=== PATIENT | female | born 1960 | race Caucasian/White ===

== ENCOUNTER 2020-02-05 08:54 | Outpatient (REF) | payer BC, SELFPAY | END 2020-02-05 08:55 | disposition home or self-care (01) | LOC: HO.BBR 08:54 | PROVIDERS: Visit Provider Internal Medicine | DX: E83.110 Hereditary hemochromatosis (principal) | CPT/HCPCS: 99195 ==

== ENCOUNTER 2020-05-10 14:26 | Outpatient (REF) | payer BC, SELFPAY ==
--- NOTE | 2020-05-10 14:36 | MM_ITS ---
EXAMINATION: MM SCREENING DIGITAL BREAST TOMOSYNTHESIS, BILATERAL CLINICAL INFORMATION: Screening. Asymptomatic. The lifetime risk of breast cancer based on the Tyrer-Cuzick Model is 17%. COMPARISON: Mammography: 02/26/2019, 02/23/2018, 02/21/2017 TECHNIQUE: Digital breast tomosynthesis is performed in both the craniocaudal and mediolateral oblique views along with computer-aided detection (CAD). Synthesized 2D images are generated from the tomosynthesis. FINDINGS: There are scattered areas of fibroglandular density (ACR BI-RADS breast composition Category b). There are no significant masses, abnormal calcifications, or other abnormalities. The axilla and skin contours are unremarkable. No significant changes. MM/MM tomosynthesis screening BI IMPRESSION: No mammographic evidence of malignancy. ASSESSMENT: BI-RADS 1: Negative RECOMMENDATION: Routine annual mammography screening. This patient's information was entered into a reminder system with a target due date for their next mammogram.
== END 2020-05-10 14:27 | disposition home or self-care (01) ==
LOC: HO.MAMMO 14:26
PROVIDERS: PCP Internal Medicine; Visit Provider Internal Medicine
DX: Z12.31 Encounter for screening mammogram for malignant neoplasm of breast (principal)
CPT/HCPCS: 77063; 77067

== ENCOUNTER → 2020-08-11 12:25 | Outpatient (BNVA) | payer BC, SELFPAY | PROVIDERS: PCP Internal Medicine; Visit Provider Physician Assistant ==

== ENCOUNTER 2020-09-15 13:22 | Outpatient (REF) | payer BC, SELFPAY ==
--- NOTE | ~2020-09-15 | MR_ITS ---
EXAMINATION: MR KNEE WITHOUT CONTRAST, RIGHT CLINICAL INFORMATION: Right knee pain and swelling. Fall injury. COMPARISON: No priors. TECHNIQUE: MRI of the knee without contrast was performed using routine sequences on a high-field scanner. FINDINGS: MENISCI: Medial Meniscus: Radial tear involves the central third of the posterior horn (5:5), (4:10). Tearing involves the anterior, middle, and posterior thirds of the meniscus respectively. No meniscal extrusion. Lateral Meniscus: Intact LIGAMENTS: Cruciate: Intact Collateral: Intact EXTENSOR MECHANISM: Intact ARTICULAR CARTILAGE/BONE: Patellofemoral Compartment: There is high-grade thinning of the lateral patellar facet articular cartilage superiorly. Tiny marginal osteophytes. Medial Compartment: Tiny marginal osteophytes. Thinning of the weightbearing femoral condyle articular cartilage with full thickness fissures in the central and posterior aspects of the weightbearing femoral condyle articular cartilage respectively. Underlying subchondral bone is preserved. Lateral Compartment: Focal cartilage is preserved. JOINT FLUID AND BURSAE: Moderate joint effusion. Ruptured Ta's cyst is noted with fluid tracking along the superficial aspect of the medial and lateral gastrocnemius musculature. MR/MR knee RT wo con IMPRESSION: Right knee: 1. Radial tear involving the central third of the posterior horn of the medial meniscus. Slight 2. Intact cruciate and collateral ligaments. 3. Mild lateral patellofemoral compartment chondrosis. Moderate medial tibiofemoral compartment process involving the weightbearing femoral condyle articular cartilage. 4. Moderate joint effusion. 5. Ruptured Ta's cyst with small volume of fluid in the semimembranosus-medial gastrocnemius bursa and fluid tracking along gastrocnemius musculature.
== END 2020-09-15 13:23 | disposition home or self-care (01) ==
LOC: HO.MRI 13:22
PROVIDERS: Visit Provider Physician Assistant
DX: S83.8X1A Sprain of other specified parts of right knee, initial encounter (principal); X58.XXXA Exposure to other specified factors, initial encounter; Y93.9 Activity, unspecified; Y92.9 Unspecified place or not applicable; Y99.9 Unspecified external cause status
CPT/HCPCS: 73721

== ENCOUNTER 2020-09-22 09:00 | Outpatient (RCR) | payer BC, SELFPAY ==
--- NOTE | 2020-09-22 10:43 | MHC.PT.OD ---
[facility] [place] Office [place] Office [place] Office [address] Katja Maier [address] [phone] F: [phone] F: [phone] F: [phone] F: [phone] Physical Therapy Daily Note Diagnosis: S83.8X1A Sprain of other specified parts of R knee, initial encounter, pain in R knee M25.561, Pain in R knee signed by Ginny Otoole PA-C date of referral Date of Surgery: Date of Evaluation: 08/29/20 Date of Treatment: 09/22/20 Treatments to Date: 8 Cancellations to Date: 0 No Shows to Date: 0 Authorized Visits: Insurance End Date: Precautions/ Contraindications:hx osteopenia hx skin sensitivity -held taping. Subjective: Tried paddleboating for 15 minutes since last session, had flare of pain, has concerns about knee brace being too snug. Pain Score and Location: 6 Global R knee Objective Flowsheet: Tests & Measures 09/22/20: -3 to 105 limited by pain/edema posterior knee Supra: 46 supra cm R knee, 44 cm jt line, infra 36 cm (up supra/jt line since eval) 09/15/20: -3 to 130 tender proximal HS and distal ITB, inflamed lateral R knee xray: NO acute fracture of dislocation of R knee. Minimal osteophyte formation. Small effusion. Flabella in the posterior lateral soft tissue. Completed 08/08/[address] Richard Pollack [address] by Dr. Bhatt. [ End ] Awaiting MRI results- to see Ortho office today re: findings Exercises seated bike x 2.0 x 10 seat #8 Review of supine/seated heel slides x 10 sec hold x 5R; Knee extension stretch with heel prop with ankle pump combo x 2 sets 10R, isometric quad set x 5 sec hold, SLR into flexion Isometric hip adduction in hooklying with ball squeeze with combo posterior pelvic tilt and hip ext x 2 sets 10R Education/benefit in supportive footwear, education re: (+) navicular drop test (+) bunion L foot, impact support of footwear, in gait/sx MET assessment/correction for R anterior innominate rotation. Education re: implementing posterior pelvic tilts, hip adduction, hip abd for home gradually (issued GTB) Sequencing stairs 4 inch leading with L LE first, descending stairs R LE first to review sx Encouraged icing, stretching Reissued HEP recommendation: Seated HS stretch, seated gastroc stretch, knee extension stretch heel prop. Modalities Select TENS machine Positioned in supine w/ knee ext stretch with bolster under ankle, pt received Knee setting Ch1 and CH2 cross patternned around tibiofemoral joint with cervical ice pack wrapped inside of a pillowcase at intensity 3.5-5.0 mA with cervical ice pack for 10 minutes. Knee ext pre application -3 pre, near full post Assessment: Pt has attended 8 session of PT to date, demonstrating limited gains in ROM secondary to pain/edema, today -3 to 105, with sx at end range flexion. She reports greatest sx lateral/posterior aspect of R knee. She has reported use of knee brace when on boat; she has denied evidence of buckling in recent days. We reviewed fit of brace which appears supportive however pt has verbalized discomfort due to edema. Has reported use of meloxicam with ? limited gains (started last week). She has demonstrated ongoing soreness, edema, and limited ROM. Pt to see [facility] today at 1:30 for follow-up. Pt is R hand dominant, 60 y/o female, referred to PT from [facility] following history of slipping on ice which occurred a few months ago with report of valgus load, then had secondary trauma a few days ago when stepping off boat ramp. Pt verbalizes sx lateral aspect/posterior region of R knee, impaired ROM, tight hamstrings, and antalgic gait. Pt reports decreased tolerance for standing, walking, kneeling, and squatting. Pt would benefit from attending skilled PT services at a frequency of 2x/week x 4 weeks to address impairments, implement HEP, and restore functional mobility tolerance to resume PLOF. PT Plan: Follow up on Tuesday re: MRI with orthopedics. work on ext>flex ROM, pain/edema management Short Term Goals: 1. Initiate R knee AROM to -5 (IR: -10 degrees) -met. 2. Initiate R knee AAROM to 120 (IR: 115 degrees). met inconsistently. 3. Pt will demonstrate SLR into flexion with good eccentric control. met inconsistently 4. Pt will demonstrate symmetrical weight bearing with full extension of R knee in stance phase of gait. Long-Term Goals: 1. Initiate R knee AROM 0 to 135 degrees (IR: -10 to 115 degrees). 2. I HEP. 3. R HS length 170 degrees. 4. Resume walking 2-3 miles with quality symmetry/weightbearing in knee. 5. Strength R knee 5/5 flex, 5/5 ext. Electronically signed by: Susie Gonzalez, PT, DPT
== END 2020-10-10 12:47 | disposition other institution (70) ==
LOC: HO.PTWFD 09:00
PROVIDERS: PCP Internal Medicine; Visit Provider Physician Assistant
DX: S83.8X1A Sprain of other specified parts of right knee, initial encounter (principal); M25.561 Pain in right knee
CPT/HCPCS: 97014; 97035; 97110; 97140; 97161; 97530; 97535

== ENCOUNTER 2020-09-22 13:03 | Outpatient (REF) | payer BC, SELFPAY ==
--- NOTE | ~2020-09-22 | XR_ITS ---
EXAMINATION: XR KNEE AP STANDING CLINICAL INFORMATION: Sprain COMPARISON: MRI of the right knee sep 15 2020 TECHNIQUE: AP bilateral standing view of the knees was obtained. FINDINGS: Bone alignment is normal. No fracture or dislocation is seen. Joint spaces are normal. Soft tissues are normal. XR/XR knee standing BI IMPRESSION: Normal knees.
== END 2020-09-22 13:04 | disposition home or self-care (01) ==
LOC: HO.HOSX 13:03
PROVIDERS: Visit Provider Physician Assistant
DX: M17.11 Unilateral primary osteoarthritis, right knee (principal); S83.8X1A Sprain of other specified parts of right knee, initial encounter; X58.XXXA Exposure to other specified factors, initial encounter; Y93.9 Activity, unspecified; Y92.9 Unspecified place or not applicable; Y99.8 Other external cause status; Z88.6 Allergy status to analgesic agent; Z88.5 Allergy status to narcotic agent
CPT/HCPCS: 20610; 73565; J1040

== ENCOUNTER 2021-11-09 14:01 | Outpatient (REF) | payer BC, SELFPAY | END 2021-11-09 14:02 | disposition home or self-care (01) | LOC: HO.BBR 14:01 | PROVIDERS: Visit Provider Internal Medicine | DX: Z13.89 Encounter for screening for other disorder (principal) ==

== ENCOUNTER 2022-03-17 08:06 | Outpatient (REF) | payer BC, SELFPAY | END 2022-03-17 08:07 | disposition home or self-care (01) | LOC: HO.BBR 08:06 | PROVIDERS: Visit Provider Internal Medicine | DX: Z13.89 Encounter for screening for other disorder (principal) ==

== ENCOUNTER 2022-11-12 12:02 | Outpatient (REF) | payer OTHER, SELFPAY | END 2022-11-12 12:03 | disposition home or self-care (01) | LOC: HO.BBR 12:02 | PROVIDERS: PCP Internal Medicine; Visit Provider Internal Medicine | DX: Z13.89 Encounter for screening for other disorder (principal) ==

== ENCOUNTER 2023-02-16 11:10 | Outpatient (REF) | payer OTHER, SELFPAY | END 2023-02-16 11:11 | disposition home or self-care (01) | LOC: HO.BBR 11:10 | PROVIDERS: PCP Internal Medicine; Visit Provider Internal Medicine | DX: Z13.89 Encounter for screening for other disorder (principal) ==

== ENCOUNTER 2023-05-17 10:58 | Outpatient (REF) | payer OTHER, SELFPAY | END 2023-05-17 10:59 | disposition home or self-care (01) | LOC: HO.BBR 10:58 | PROVIDERS: PCP Internal Medicine; Visit Provider Internal Medicine | DX: Z13.89 Encounter for screening for other disorder (principal) ==

== ENCOUNTER 2023-07-13 09:59 | Outpatient (REF) | payer OTHER, SELFPAY | END 2023-07-13 10:00 | disposition home or self-care (01) | LOC: HO.BBR 09:59 | PROVIDERS: PCP Internal Medicine; Visit Provider Internal Medicine | DX: Z13.89 Encounter for screening for other disorder (principal) ==

== ENCOUNTER 2023-08-17 09:50 | Outpatient (REF) | payer MEDICARE, SELFPAY | END 2023-08-17 09:51 | disposition home or self-care (01) | LOC: HO.BBR 09:50 | PROVIDERS: PCP Internal Medicine; Visit Provider Internal Medicine | DX: Z13.89 Encounter for screening for other disorder (principal) ==

== ENCOUNTER 2023-09-14 09:03 | Outpatient (REF) | payer MEDICARE, SELFPAY | END 2023-09-14 09:04 | disposition home or self-care (01) | LOC: HO.BBR 09:03 | PROVIDERS: PCP Internal Medicine; Visit Provider Internal Medicine | DX: Z13.89 Encounter for screening for other disorder (principal) ==

== ENCOUNTER 2024-08-14 13:00 | Outpatient (REF) | payer MEDICARE, SELFPAY ==
--- OUTSIDE RECORDS SUMMARY | 2024-08-14 15:51 | XMS_ITS | Clinical Summary ---
Author Organization [facility] Address [address] [place] [address] Care Team Providers Care Tea Blender Name Role Phone Jackie Woody MD Primary Care Provider [phone] Allergies Active Allergy Reactions Criticality Noted Date Comments Oxycodone-Acetaminophen 12/24/2019 Medications No known medications Active Problems Problem Noted Date Diagnosed Date Hereditary hemochromatosis 12/05/2017 Social History Tobacco Use Types Packs/Day Years Used Date Smoking Tobacco: Never Assessed Sex and Gender Information Value Date Recorded Sex Assigned at Not on file Gender Identity Not on file Sexual Orientation Not on file Job Start Date Occupation Industry Not on file Not on file Not on file Last Filed Vital Signs Vital Sign Reading Time Taken Comments Blood Pressure 145/63 08/11/2023 10:34 AM EDT Pulse 54 08/11/2023 10:34 AM EDT Temperature 36.4 ??C (97.5 ??F) 08/11/2023 10:34 AM E DT Respiratory Rate - - Oxygen Saturation 99% 08/11/2023 10:34 AM EDT Inhaled Oxygen Concentration - - Weight 95.1 kg (209 lb 9.6 oz) 08/11/2023 10:34 AM EDT Height 170.2 cm (5' 7 ) 12/24/2019 9:56 AM EDT Body Mass Index 32.83 12/24/2019 9:56 AM EDT Plan of Treatment Health Maintenance Due Date Last Done Comments Hepatitis C Screening 1960 Depression Screening 1970 Preventative Health Evaluation 1976 Colon Cancer Screening (Colonoscopy) 08/07/2003 Breast Cancer Screening (Mammogram) 2008 Fall Risk Assessment 08/07/2023 Osteoporosis Screening (DEXA Scan) 08/07/2023 Pneumococcal Vaccine (1 of 1 - PCV) 08/07/2023 COVID-19 Vaccine ( season) 2024 08/20/2021, 02/18/2021, 07/06/2020, Additional history exists Influenza Vaccine (#1) 2024 , 01/11/2020, 01/11/2020, Additional history exists DTap / Tdap / Td (3 - Td or Tdap) 09/10/2027 09/09/2017, 12/13/2009 RSV Adult > 60+ Yrs or (1 - 1-dose 75+ series) 2033 Shingrix-Zoster Vaccine Completed 06/03/2018, 03/30 Hepatitis B Vaccines Aged Out No long er eligible based on patient's age to complete this topic RSV Ped < 20 months Aged Out No longe r eligible based on patient's age to complete this topic Care Teams Tea Blender Relationship Specialty Start Date End Date Jackie Woody MD [address] [place] [id number] PCP - General Internal Medicine 12/24/19
--- OUTSIDE RECORDS SUMMARY | 2024-08-14 15:52 | XMS_ITS | Continuity of Care Document ---
Author Organization [facility] Address [address] [facility] [place] [address] Insurance Providers Payer Plan Claims Address Claims Phone Policy Number Group Number Relation Employer Guarantor Name Guarantor Guarantor Address Guarantor Phone Health [place] [employer] [facility] [employer] [place] [employer] [address] [id number] Self Eliz Curry [address] [place] [id number] [facility] PUBLIC [facility] PUBLI C PLANS [address], [place] [address] tel:[phone] [id number] 2 Self Eliz Curry [address] [place] [id number] [facility] PUBLI C PLANS [address], [place] [address] [id number] 2 Self Eliz Curry [address] [place] [address] Problems Unknown Problems Results Test Value / Unit Interpretation Reference Ran Comp. Metabolic Panel (14)[[id number]]?Collected: 05/11/2024 04:59 PM?Specimen Received: 05/11/2024 05:00 AM?Source: [facility] Glucose [790894] 100 mg/dL H 70-99 mg/dL BUN [872640] 23 mg/dL 8-27 mg/dL Creatinine [292570] 0.93 mg/dL 0.57-1.0 0 mg/dL eGFR [020787] 68 mL/min/1.73 >59 mL/min/1 .73 BUN/Creatinine Ratio [749335] 25 12-28 Sodium [284176] 145 mmol/L H 134-144 mmol /L Potassium [913554] 4.4 mmol/L 3.5-5.2 m mol/L Chloride [759341] 106 mmol/L 96-106 mmo l/L Carbon Dioxide, Total [368797] 23 mmol/L 20-29 mmol/L Calcium [242390] 9.3 mg/dL 8.7-10.3 mg /dL Protein, Total [135886] 6.0 g/dL 6.0- 8.5 g/dL Albumin [771322] 4.2 g/dL 3.9-4.9 g/d L Globulin, Total [983110] 1.8 g/dL 1.5 -4.5 g/dL Bilirubin, Total [479434] 0.5 mg/dL 0. 0-1.2 mg/dL Alkaline Phosphatase [134048] 58 IU/L 44-121 IU/L AST (SGOT) [283053] 24 IU/L 0-40 IU/ L ALT (SGPT) [423439] 14 IU/L 0-32 IU/ L Lipid Panel[[id number]]?Collected: 05/11/2024 04:59 PM?Specimen Received: 05/11/2024 05:00 AM?Source: [facility] Cholesterol, Total [350315] 206 mg/dL H 100-199 mg/dL Triglycerides [330229] 113 mg/dL 0-149 mg/dL HDL Cholesterol [019649] 45 mg/dL >39 mg/dL VLDL Cholesterol Guillermo [622354] 20 mg/dL 5-40 mg/dL LDL Chol Calc (NIH) [391804] 141 mg/dL H 0-99 mg/dL Hemoglobin A1c[286637]?Collected: 05/11/2024 04:59 PM?Specimen Received: 05/11/2024 05:00 AM?Source: [facility] Hemoglobin A1c [907521] 5.4 % 4.8- 5.6 % . Prediabetes: 5.7 - 6.4 Nahomy betes: >6.4 Glycemic control for adults with diabetes: 7.0 Allergies, adverse reactions, alerts No known allergies and adverse reactions Medications No administered medications reported Vital Signs No vital signs reported Social History No smoking Hx information available
--- OUTSIDE RECORDS SUMMARY | 2024-08-14 15:52 | XMS_ITS | Clinical Summary ---
Author Organization [facility] Address [address] [place] [address] Phone Care Team Providers Care Maintenance Worker House Trailer Name Role Phone Jackie Woody MD Primary Care Provider [phone] Allergies Active Allergy Reactions Criticality Noted Date Comments Oxycodone-Acetaminophen Nausea And Vomiting 09/2017 Percocet Medications calcium carbonate-vit D3-min 600 mg-10 mcg (400 unit) tablet Take 1 Tab by mouth daily. Active Active Problems Problem Noted Date Diagnosed Date Allergic rhinitis 12/15/2017 Diverticulosis 12/15/2017 Hypercholesterolemia 12/15/2017 Internal hemorrhoids 12/15/2017 Hereditary hemochromatosis (CMS/HCC V24) 018 Encounters Date Type Department Care Team Description 08/10/2024 10:15 AM EDT Office Visit [facility] Hematology Oncology [address] [place] [phone] Celio Lewis MD Hereditary hemochromatosis (CMS/HCC V24) (Primary Dx) 07/24/[address] [facility] Hematology Oncology [address] [place] [phone] Celio Lewis MD 05/23/2024 9:25 AM EST - 05/23/2024 11:59 PM EST [facility] [address] [phone] Encounter for screening mammogram for breast cancer Discharge Disposition: Home or Self Care from Last 3 Months Immunizations Name Administration Dates Next Due Pfizer SARS-CoV-2 COVID-19, mRNA, LNP-S, preservative free 07/06/2020,06/15/2020 Tdap Tetanus diptheria acell ular pertussis (Boostrix; Adacel) 7yo and older 09/09/2017,12/13/2009 Social History Tobacco Use Types Packs/Day Years Used Date Smoking Tobacco: Former Cigarettes Tobacco Cessation:Counseling Given: Not Answered Alcohol Use Standard Drinks/Week Comments Yes 0 (1 standard drink = 0.6 oz pur e alcohol) Comments No Sex and Gender Information Value Date Recorded Sex Assigned at Not on file Legal Sex Female 5:48 AM EST Gender Identity Not on file Sexual Orientation Not on file Travel History Travel Start Travel End [place] 07/31/2024 08/07/2024 Obstetrics History Para Term AB IAB SAB Ectopic Multiple Livin g Live Births 2 Last Filed Vital Signs Vital Sign Reading Time Taken Comments Blood Pressure 133/69 08/10/2024 10:27 AM EDT Pulse 51 08/10/2024 10:27 AM EDT Temperature 36.9 ??C (98.5 ??F) 08/10/2024 1 0:27 AM EDT Respiratory Rate - - Oxygen Saturation 100% 08/10/2024 10: 27 AM EDT Inhaled Oxygen Concentration - - Weight 88.4 kg (194 lb 12.8 oz) 025 10:27 AM EDT Height 170.2 cm (5' 7 ) 08/10/2024 10:2 7 AM EDT Body Mass Index 30.51 08/10/2024 10:27 AM EDT Plan of Treatment Upcoming Encounters Date Type Department Care Team (Late st Contact Info) Description 08/12/2025 9:15 AM EDT Office Visit [facility] Hematology Oncology [address] [place] [phone] Celio Alas MD [address] [place] [phone] Health Maintenance Due Date Last Done Comments Cholesterol Screening (Lipid Panel) 04/04/2022 Colorectal Cancer Screening: Colonoscopy 04/04/2022 Depression Screening 04/04/2022 Hepatitis C Screening 04/04/2022 Medicare Annual Wellness Visit 04/04/2022 Osteoporosis Screening (Bone Density Screening) 04/04/2022 Social Influencers of Health Screening 04/04/2022 Falls Risk Assessment 08/07/2023 Breast Cancer Screening 05/23/2026 05/23/19 25, 05/20/2023, 05/17/2022, Additional history exists DTaP,Tdap,and Td Vaccines (3 - Td or Tdap) 09/10/2027 09/09/2017, 12/13/2009 RSV Immunization Adult Patients (1 - 1-dose 75+ series) 2033 Zoster Vaccines Completed 06/03/2018, 03/30/2018 Pneumococcal Vaccine: 50+ Years Completed 10/05/2023 COVID-19 Vaccine Completed 02/08/2024, 03/2023, 01/22/2022, Additional history exists Influenza Vaccine Completed 02/08/2024, , 01/22/2022, Additional history exists Hepatitis B Vaccines Completed 04/13/2024, 11/09/2023, 10/05/2023 HIB Vaccines Aged Out No longer eligi ble based on patient's age to complete this topic HPV Vaccines Aged Out No longer eligi ble based on patient's age to complete this topic Hepatitis A Vaccines Aged Out No long er eligible based on patient's age to complete this topic IPV Vaccines Aged Out No longer eligi ble based on patient's age to complete this topic MMR Vaccines Aged Out No longer eligi ble based on patient's age to complete this topic Meningococcal ACWY Vaccine Aged Out N o longer eligible based on patient's age to complete this topic Meningococcal B Vaccine Aged Out No l onger eligible based on patient's age to complete this topic RSV Immunization Patients Under 20 months Aged Out No longer eligible based on patient's age to complete this topic Varicella Vaccines Aged Out No longer eligible based on patient's age to complete this topic Procedures Procedure Name Priority Date/Time Associated Diagnosis Comments MG MAMMO DIGITAL SCREENING W ERICA BILAT Routine 05/23/2024 9:53 AM EST Encounter for screening mammogram for breast cancer from Last 3 Months Results * MG Mammo Digital Screening w Erica bilat (05/23/2024 9:53 AM EST) Anatomical Region Laterality Modality Breast Bilateral Mammography 05/23/2024 10:1 8 AM EST Impressions 05/23/2024 10:24 AM EST No mammographic evidence of malignancy. A negative mammogram in the presence of a clinically suspicious palpable abnormality does not preclude the possibility of malignancy or alter the indications for biopsy. PQRI CPT II 3342F Code 39284, 67708 PQRI 225 CPT II 7025F TISSUE DENSITY: There are scattered areas of fibroglandular density. (BI-RADS category B) IMPRESSION: Benign. BI-RADS CATEGORY: 2 - BENIGN RECOMMENDATION: Screening bilateral mammogram is recommended in 1 year. Mammo Location: [facility], [address] [place] [address] -------- FINAL REPORT -------- Dictated By: Ramses Guevara Dictated Date: 05/23/2024 10:18 ET Assigned Physician: Ramses Guevara Reviewed and Electronically Signed By: Ramses Guevara Signed Date: 05/23/2024 10:24 ET Workstation ID: [id number] Transcribed By: Self Edit Transcribed Date: 05/23/2024 10:18 ET Narrative 05/23/2024 10:24 AM EST CLINICAL: The patient is a 63 years Female presenting for routine screening mammography. COMPARISON: Most recently 05/20/2023 and most remotely 02/21/2017. ?? TECHNIQUE: Full-field digital mammography of the breasts bilaterally consisting of tomosynthesis in MLO and CC projection is performed in the [employer] 2000-D unit. ??Computer aided detection utilizing the iCAD system was utilized. FINDINGS: The breasts are again seen to be composed of a combination of fatty and fibroglandular elements. ??A well-circumscribed nodular density posterolaterally in the left breast is stable and is therefore again regarded as being benign. ??Scattered benign calcifications are again seen in both breasts. ??There is no suspicious cluster of microcalcifications, suspicious mass, or area of architectural distortion. There is no skin thickening or nipple retraction. Procedure Note Ramses Guevara MD - 05/23/2024 CLINICAL: The patient is a 63 years Female presenting for routinescreening mammography. COMPARISON: Most recently 05/20/2023 and most remotely 02/21/2017. TECHNIQUE: Full-field digital mammography of the breasts bilaterallyconsisting of tomosynthesis in MLO and CC projection is performed in the[employer] 2000-D unit. Computer aided detection utilizing the [employer]system was utilized. FINDINGS: The breasts are again seen to be composed of a combination offatty and fibroglandular elements. A well-circumscribed nodular densityposterolaterally in the left breast is stable and is therefore againregarded as being benign. Scattered benign calcifications are again seenin both breasts. There is no suspicious cluster of microcalcifications,suspicious mass, or area of architectural distortion. There is no skinthickening or nipple retraction. IMPRESSION: No mammographic evidence of malignancy. A negative mammogram in the presence of a clinically suspicious palpableabnormality does not preclude the possibility of malignancy or alter theindications for biopsy. PQRI CPT II 3342F Code 80653, 18739 PQRI 225 CPT II 7025F TISSUE DENSITY: There are scattered areas of fibroglandular density.(BI-RADS category B) IMPRESSION: Benign. BI-RADS CATEGORY: 2 - BENIGN RECOMMENDATION: Screening bilateral mammogram is recommended in 1 year. Mammo Location: [facility], [address] [place] [phone] -------- FINAL REPORT -------- Dictated By: Ramses Guevara Dictated Date: 05/23/2024 10:18 ET Assigned Physician: Ramses Guevara Reviewed and Electronically Signed By: Ramses Guevara Signed Date: 05/23/2024 10:24 ET Workstation ID: [id number] Transcribed By: Self Edit Transcribed Date: 05/23/2024 10:18 ET us Self Referral Sppl IMG BI PROCEDURES Final Resul t from Last 3 Months Insurance [employer] Care Teams Maintenance Worker House Trailer Relationship Specialty Start Date End Date Jackie Woody MD [address] [place] [phone] PCP - General Internal Medicine 11/09/17
--- OUTSIDE RECORDS SUMMARY | 2024-08-14 15:52 | XMS_ITS | Encounter Summary ---
Author Organization [facility] Address [address] [place] [address] Care Team Providers Care Aviation Electronic Warfare Operator Name Role Phone Jackie Woody MD Primary Care Provider [phone] Reason for Visit * Reason Comments Follow-up Encounter Details Date Type Department Care Team (Latest Contact Info) Description 08/10/2024 10:15 AM EDT Office Visit [facility] Hematology Oncology [address] [place] [phone] Celio Alas MD [address] [place] [phone] Hereditary hemochromatosis (CMS/HCC V24) (Primary Dx) Social History Tobacco Use Types Packs/Day Years [...] file Travel History Travel Start Travel End [place] 07/31/2024 08/07/2024 documented as of this encounter Last Filed Vital Signs Vital Sign Reading [...] Mass Index 30.51 08/10/2024 10:27 AM EDT documented in this encounter Progress Notes * Celio Soliz-MD Raj - 08/10/2024 10:15 AM EDT CHIEF COMPLAINT: Chief Complaint Patient presents with Follow-up Hereditary hemochromatosis IDENTIFIER:Eliz Curry is a 64 y.o. female. HPI: The patient returns for follow up of hereditary hemochromatosis For details of initial diagnosis and follow up until MAR 02, 2024- please refer to notes from prior [facility] EMR last note dated 08/11/2023 Patient returns for follow-up of hemochromatosis. She had labs performed at [facility]. These are reviewed. In the last year, her ferritin was at 29. She had 1 phlebotomy performed at [facility], in the fall. She has been feeling well without any new symptoms. Latest lab work reviewed, no anemia. Reticulocyte's are normal. Iron level is increased 172, saturation upper limit of normal 54, and ferritin isat 111. Her goal ferritin is 50, therefore I advised her to have phlebotomy performed twice 6 months apart at [facility], 500 mL. Patient agrees Regarding her family history, patient's son had testing and had elevated ferritin. They are awaiting further testing. The following is copied, reviewed and edited Cancer Staging No matching staging information was found for the patient. Oncology History No history exists. 57-year-old lady referred for evaluation of hereditary hemochromatosis. Patient reports that hemochromatosis was diagnosed incidentally when she had lab work performed in 2009. She has been a blood donor, donating blood to test 3 times a year. She usually goes to the [place] [address] to the [facility]. Patient denies any symptoms that could be related to hemochromatosis, such as finger/hand stiffness or arthritis, glucose intolerance, changes to skin color, shortness of breath palpitations or chest pressure. More recently she has lost weight about 30 pounds over this year, by joining [employer] Past medical history includes diverticulosis, elevated cholesterol, hemorrhoids, heterozygous hemochromatosis. Past surgical history includes tooth extraction, tonsillectomy and skin biopsy. Family history includes congestive heart failure, COPD, and she might disease, breast cancer Patient has 2 children, one son and her daughter, does not think that they Have been tested for hemochromatosis Plan -- 1 heterozygous for hereditary hemachromatosis with elevated ferritin 217 and high iron saturation I recommend phlebotomy, 500 ML, twice, 3 months apart to achieve a goal ferritin of 50. 08/2023 Patient feels well without any arthritic or musculoskeletal symptoms. Patient was last seen in clinic in 2019, thereafter was lost to follow-up due to the COVID-19 epidemic ; she was then evaluated in August 2021, and resumed phlebotomy x2 due to elevated iron saturation at 72 She had recent lab work performed at her PCP office that showed iron saturation further increased to 88 despite 2 units of phlebotomy in 2021 Patient completed 3 units of phlebotomy she is awaiting lab work, she may do lab work along with her PCP office visit in September. Based on the results of lab work, may plan for further phlebotomy as needed. Patient is agreement with this plan ROS: GENERAL: No malaise, significant weight loss or fever NECK: No lumps, goiter, pain or significant neck swelling RESPIRATORY: No cough, wheezing or shortness of breath CARDIOVASCULAR: No chest pain, leg swelling or palpitations GI: No abdominal discomfort, blood in stools or black stools MUSCULOSKELETAL: No joint pain or swelling, back pain, or muscle pain. HEMATOLOGY/LYMPHOLOGY No prolonged bleeding, easy bruisability or swollen nodes Other Systems review is non contributory PAST MEDICAL HISTORY: Active Ambulatory Problems Diagnosis Date Noted Allergic rhinitis 12/15/2017 Diverticulosis 12/15/2017 Hereditary hemochromatosis ([facility] V24) 12/05/2017 Hypercholesterolemia 12/15/2017 Internal hemorrhoids 12/15/2017 Resolved Ambulatory Problems Diagnosis Date Noted No Resolved Ambulatory Problems No Additional Past Medical History SOCIAL HISTORY: Social History Tobacco Use Smoking status: Former Types: Cigarettes Smokeless tobacco: Not on file Substance Use Topics Alcohol use: Yes FAMILY HISTORY: No family history on file. Current Outpatient Medications: calcium carbonate-vit D3-min 600 mg-10 mcg (400 unit) tablet, Take 1 Tab by mouth daily., Disp: , Rfl: Allergies Allergen Reactions Oxycodone-Acetaminophen Nausea And Vomiting Percocet PHYSICAL EXAM: Visit Vitals BP 133/69 (BP Location: Right arm, Patient Position: Sitting, BP Cuff Size: Large adult long) Pulse 51 Temp 36.9 ??C (98.5 ??F) (Temporal) Ht 1.702 m (67 ) Wt 88.4 kg (194 lb 12.8 oz) SpO2 100% BMI 30.51 kg/m?? OB Status Postmenopausal Smoking Status Former BSA 2 m?? APPEARANCE: Alert and in no acute distress EYES: PERRL, conjunctiva pink and sclera are Normal without icterus ORAL CAVITY: No erythema or exudates NECK: Neck supple, no adenopathy, HEART: RRR with normal S1 and S2, no murmurs, no gallops, no JVD appreciated LUNG: clear to auscultation bilaterally Percussion note normal LYMPH NODES: No palpable superficial adenopathy ABDOMEN: Bowel sounds normoactive, no bruits, soft, non-tender, without organomegaly or palpable masses EXTREMITIES: Extremities warm and well perfused without clubbing, cyanosis, rash or edema NEURO: Oriented X 3, no focal weakness; sensation is normal LABS: Review of Lab results , interpreted No results found for: WBC , HGB , HCT , MCV , PLT No results found for: NA , K , CL , CO2 , GLUCOSE , BUN , CREATININE , CALCIUM , PROT , ALBUMIN , BILITOT , AST , ALT , URICACID , PHOS , MG , ALKPHOS , CKTOTAL , EGFR Review of Imaging, interpreted MG Mammo Digital Screening w Arie bilat Narrative: CLINICAL: The patient is a 63 years Female presenting for routine screening mammography. COMPARISON: Most recently 05/20/2023 and most remotely 02/21/2017. TECHNIQUE: Full-field digital mammography of the breasts bilaterally consisting of tomosynthesis inMLO and CC projection is performed in the [employer] 2000- D unit. Computer aided detection utilizing the iCAD system was utilized. FINDINGS: The breasts are again seen to be composed of a combination of fatty and fibroglandular elements. A well-circumscribed nodular density posterolaterally in the left breast is stable and is therefore again regarded as being benign. Scattered benign calcifications are again seen in both breasts. There is no suspicious cluster of microcalcifications, suspicious mass, or area of architecturaldistortion. There is no skin thickening or nipple retraction. Impression: No mammographic evidence of malignancy. A negative mammogram in the presence of a clinically suspicious palpable abnormality does not preclude the possibility of malignancy or alter the indications for biopsy. PQRI CPT II 3342F Code 55917, 21989 PQRI 225 CPT II 7025F TISSUE DENSITY: There are scattered areas of fibroglandular density. (BI-RADS category B) IMPRESSION: Benign. BI-RADS CATEGORY: 2 - BENIGN RECOMMENDATION: Screening bilateral mammogram is recommended in 1 year. Mammo Location: [facility], [address] [place] [address] -------- FINAL REPORT -------- Dictated By: Ramses Guevara Dictated Date: 05/23/2024 10:18 ET Assigned Physician: Ramses Guevara Reviewed and Electronically Signed By: Ramses Guevara Signed Date: 05/23/2024 10:24 ET Workstation ID: [id number] Transcribed By: Self Edit Transcribed Date: 05/23/2024 10:18 ET Review of External Documentation Tests ordered - IMPRESSION: 1. Hereditary hemochromatosis (CMS/HCC V24) PLAN: 64-year-old lady with hereditary hemochromatosis #1 hereditary hemochromatosis, a compound heterozygous for 2 mutations - C282Y and H 63D patient had lab performed at [facility], that is reviewed Iron saturation increased to 72% 2021, and despite 2 units of phlebotomy has increased to 88% Since her ferritin is greater than 200 or iron saturation greater than 50%, she would benefit from 3 units of phlebotomy over the next year-- completed phlebotomy x 3 a month apart in 2022 She had 1 phlebotomy performed in 2019 for She may need phlebotomy sooner, therefore may have lab work performed in June and return to clinic for follow-up Labs from last week are reviewed, showed elevated iron, and ferritin 111 and above goal level whichis goal of 50 Advised her to have phlebotomy performed twice every 6 months apart at [facility] this year #2 dietary advice reviewed, no iron supplementation by no other restrictions--she will need periodic phlebotomy, therefore no strict restrictions on diet #3-- I provided patient returned information regarding her compound heterozygosity, therefore it issome a near certainty that her children would have one of the abnormal genes. However they may not express the phenotype Recommend testing ferritin, iron studies, and if they are high thereafter to in the gene test - Sonhad testing performed, elevated ferritin noted. Follow-up in 1 year after lab work at PCP office Will request CBC-D, reticulocyte's, iron/IBC, ferritin okay to do at [facility]-- no issues Health Care Proxy--no one Celio Alas MD Cc Jackie Woody MD documented in this encounter Plan of Treatment Upcoming Encounters Date Type Department Care Team (Late st Contact Info) Description 08/12/2025 9:15 AM EDT Office Visit [facility] Hematology Oncology [address] [place] [address] Celio Alas MD [address] [place] [phone] documented as of this encounter Visit Diagnoses Diagnosis Hereditary hemochromatosis (CMS/HCC V24)- Primary Hereditary hemochromatosis documented in this encounter Care Teams Aviation Electronic Warfare Operator Relationship Specialty Start Date End Date Jackie Woody MD [address] [place] [phone] PCP - General Internal Medicine 11/09/17 documented as of this encounter
== END 2024-08-14 13:01 | disposition home or self-care (01) ==
LOC: HO.BBR 13:00
PROVIDERS: Visit Provider Internal Medicine
DX: Z13.89 Encounter for screening for other disorder (principal)

== ENCOUNTER 2025-02-20 09:45 | Outpatient (REF) | payer MEDICARE, SELFPAY ==
--- OUTSIDE RECORDS SUMMARY | 2020-08-08 19:43 | XMS_ITS | Encounter Summary ---
Author Organization [facility] Address [address] [place] [address] [place] [phone] Phone Care Team Providers Care Elevator Installer Apprentice Name Role Phone Jackie Woody MD Primary Care Provide r Encounter Details Date Type Department Care Team (Late st Contact Info) Description 08/08/2020 7:43 PM EDT Hospital Encounter [facility] [address] [place] [id number] Lori Ortiz PA [address] [place] [address] [email or web address] Social History Tobacco Use Types Packs/Day Years Used Date Smoking Tobacco: Never Smokeless Tobacco: Never Education Answer Date Recorded Are you interested in more education? Not on joe e 08/27/2022 Are you concerned about learning? Not on file 08/27/2022 No 08/27/2022 No 08/27/2022 Digital Access Answer Date Recorded No 09/25/2022 No 09/25/2022 Reliable internet access at home? Not on file 09/25/2022 Device with a working camera? Not on file Comments Unknown Sex and Gender Information Value Date Recorded Sex Assigned at Not on file Legal Sex Female 9:57 AM EDT Gender Identity Not on file Sexual Orientation Not on file documented as of this encounter Plan of Treatment Not on file documented as of this encounter Procedures Procedure Name Priority Date/Time Associated Diagnosis Comments XR KNEE 4 OR MORE VIEWS (RIGHT) Urgent/patient waiting 08/08/2020 7:51 PM EDT Sprain of right knee, unspecified ligament, initial encounter documented in this encounter Results * XR KNEE 4 OR MORE VIEWS (RIGHT) (08/08/2020 7:51 PM EDT) Anatomical Region Laterality Modality Knee Right Computed Radiogr aphy 08/08/2020 8:01 PM EDT Impressions 08/08/2020 8:31 PM EDT No acute fracture or dislocation of the right knee. ATTESTATION: Maco Malone as teaching physician, have reviewed the images for this case and if necessary edited the report originally created by Ivonne Parikh. Narrative 08/08/2020 8:31 PM EDT Reason for exam (per EHR order): S/P Fall; fall 1 month ago, ttp lateral patella TECHNIQUE: 4 radiographs of the right knee. COMPARISON: None. FINDINGS: Minimal osteophyte formation. No acute fracture or dislocation. Small effusion. Flabella in the posterior lateral soft tissues. Procedure Note Maco Bhatt, DO - 08/08/2020 Reason for exam (per EHR order): S/P Fall; fall 1 month ago, ttp lateralpatella TECHNIQUE: 4 radiographs of the right knee. COMPARISON: None. FINDINGS: Minimal osteophyte formation. No acute fracture or dislocation. Smalleffusion. Flabella in the posterior lateral soft tissues. IMPRESSION: No acute fracture or dislocation of the right knee. ATTESTATION: Maco Malone as teaching physician, have reviewed theimages for this case and if necessary edited the report originally createdby Ivonne Parikh. Lori ROQUE IMG XR LOWER EXTREMITY Final Result documented in this encounter Visit Diagnoses Not on filedocumented in this encounter Care Teams Elevator Installer Apprentice Relationship Specialty Start Date End Date Jackie Woody MD [address] [place] [id number] PCP - General Internal Medicine 01/22/19 documented as of this encounter Additional Source Comments The information contained in this document represents components of the legal health record. It is not the complete legal health record.[facility]
--- OUTSIDE RECORDS SUMMARY | 2025-02-20 11:30 | XMS_ITS | Clinical Summary ---
Author Organization [facility] Address [address] [facility] [address] [place] [phone] Phone Care Team Providers Care Conference Services Director Name Role Phone Jackie Woody MD Primary Care Provide r Allergies Active Allergy Reactions Criticality Noted Date Comments Oxycodone-Acetaminophen 12/24/2019 Medications calcium carbonate-vitami n D3 1,250 mg (500 mg elemental)-400 units per tablet Take 1 tablet by mouth daily. Active TURMERIC ORAL Take by mouth. Active Active Problems Problem Noted Date Diagnosed Date Class 1 obesity 12/17/2023 Colon polyp 12/17/2023 Hypercholesterolemia 12/17/2023 Osteopenia 12/17/2023 Renal insufficiency 12/17/2023 Compound heterozygous hemochromatosis type 1 Hereditary hemochromatosis 12/05/2017 Immunizations Immunization Administration Dates Next Due COVID-19 (Pre-02/21) Pfizer Vaccine, mRNA, PF 07/06/2020,06/15/2020 INFLUENZA, SPLIT VIRUS, TRIV ALENT W/ PRESERVATIVE IM 02/14/2016 Influenza Quadrivalent MDCK Preservative Free IM 02/13/2017 Influenza Quadrivalent Preservative Free IM 12/31,01/31/2019,01/09/2018 Tdap 09/09/2017,12/13/2009 Zoster recombinant 06/03/2018,03/30/2018 Social History Tobacco Use Types Packs/Day Years Used Date Smoking Tobacco: Never Smokeless Tobacco: Never Tobacco Cessation:Counseling Given: Not Answered Education Answer Date Recorded Are you interested [...] on file Sexual Orientation Not on file Last Filed Vital Signs Vital Sign Reading Time Taken Comments Blood Pressure 112/72 12/17/2023 1:48 PM EDT Pulse 54 12/17/2023 1:48 PM EDT Temperature 36.6 C (97.9 F) 12/17/2023 1:48 PM EDT Respiratory Rate 18 08/08/2020 7:03 PM EDT Oxygen Saturation 100% 12/17/2023 1:48 PM EDT Inhaled Oxygen Concentration - - Weight 81.6 kg (180 lb) 12/17/2023 1:48 PM EDT Height 168.9 cm (5' 6.5 ) 12/17/2023 1:48 PM EDT Body Mass Index 28.62 12/17/2023 1:48 PM EDT Plan of Treatment Health Maintenance Due Date Last Done Comments LIPID PANEL 1958 DEPRESSION SCREENING 1970 HEPATITIS C SCREENING 1976 MAMMOGRAM 1998 COLOGUARD 08/07/2003 COLONOSCOPY 08/07/2003 COLORECTAL CANCER SCREENING 08/07/2003 FIT TEST 08/07/2003 FOBT 08/07/2003 SIGMOIDOSCOPY 08/07/2003 VIRTUAL COLONOSCOPY 08/07/2003 SCREENING FOR DIABETES 05/23/2023 05/23/2020 OSTEOPOROSIS SCREENING INITIAL (ONE-TIME) 08/07/2023 INFLUENZA VACCINE (#1) 2024 , 01/22/2022, 01/14/2021, Additional history exists COVID-19 VACCINE ( season) 2024 02/09/2023, 01/22/2022, 08/20/2021, Additional history exists Adult Td,Tdap Booster 09/10/2027 09/09/2017, 010 RSV VACCINE (1 - 1-dose 75+ series) 2033 ZOSTER VACCINES Completed 06/03/2018, 03/30/2018 PNEUMOCOCCAL VACCINES (50+ years) Completed 10/05/2023 SMOKING STATUS SCREENING (Once After 26 Yrs) Completed 12/17/2023 HEPATITIS A VACCINES Aged Out No long er eligible based on patient's age to complete this topic HIB VACCINES Aged Out No longer eligi ble based on patient's age to complete this topic MENINGOCOCCAL VACCINES (ACWY) Aged Out No longer eligible based on patient's age to complete this topic MENINGOCOCCAL VACCINES (B) Aged Out N o longer eligible based on patient's age to complete this topic Medical Devices Not on file Insurance [employer] POS PPO REPLACEMENT [employer] POS PPO REPLACEMENT [employer] PPO REPLACEMENT [employer] PPO REPLACEMENT Care Teams Conference Services Director Relationship Specialty Start Date End Date Jackie Woody MD [address] [phone] PCP - General Internal Medicine 01/22/19 Additional Source Comments The information contained in this document represents components of the legal health record. It is not the complete legal health record.[facility]
--- OUTSIDE RECORDS SUMMARY | 2025-02-20 11:30 | XMS_ITS | Clinical Summary ---
Author Organization [facility] Address [address] [place] [id number] Care Team Providers Care Writer Editor Name Role Phone Jackie Woody MD Primary Care Provider [phone] Allergies Active Allergy Reactions Criticality Noted Date [...] 54 08/11/2023 10:34 AM EDT Temperature 36.4 C (97.5 F) 08/11/2023 10:34 AM EDT Respiratory Rate - - Oxygen Saturation 99% [...] age to complete this topic Care Teams Writer Editor Relationship Specialty Start Date End Date Jackie Woody MD [address] [place] [id number] PCP - General Internal Medicine 12/24/19
--- OUTSIDE RECORDS SUMMARY | 2025-02-20 11:30 | XMS_ITS | Clinical Summary ---
Author Organization [facility] Address [address] [place] [address] Phone Care Team Providers Care Hardboard Press Operator Name Role Phone Jackie Woody MD Primary Care Provider Allergies Active Allergy Reactions Criticality Noted Date Comments Oxycodone-Acetaminophen Nausea And Vomiting 09/2017 Percocet Medications calcium carbonate-vit D3-min 600 mg-10 mcg (400 unit) tablet Take 1 Tab by mouth daily. Active Active Problems Problem Noted Date Diagnosed Date Allergic rhinitis 12/15/2017 Diverticulosis 12/15/2017 Hypercholesterolemia 12/15/2017 Internal hemorrhoids 12/15/2017 Hereditary hemochromatosis ([facility] V24) 018 Immunizations Immunization Administration Dates Next Due Pfizer SARS-CoV-2 COVID-19, [...] on file Sexual Orientation Not on file Obstetrics History Para Term AB IAB SAB Ectopic Multiple Livin g Live Births 2 Last Filed Vital Signs Vital Sign Reading Time Taken Comments Blood Pressure 133/69 08/10/2024 10:27 AM EDT Pulse 51 08/10/2024 10:27 AM EDT Temperature 36.9 C (98.5 F) 08/10/2024 10:27 AM EDT Respiratory Rate - - Oxygen [...] Description 08/12/2025 9:15 AM EDT Office Visit [facility] Hematology Oncology [address] [place] [address] Celio Alas MD [address] [place] [address] Health Maintenance Due Date Last Done Comments Colorectal Cancer Screening: Colonoscopy 1960 Cholesterol Screening (Lipid Panel) 04/04/2022 Hepatitis C Screening 04/04/2022 Medicare Annual Wellness Visit 04/04/2022 Osteoporosis Screening (Bone Density Screening) 04/04/2022 Social Influencers of Health Screening 04/04/2022 Falls Risk Assessment 08/07/2023 Depression Screening 05/02/2024 COVID-19 Vaccine ( season) 2024 02/08/2024, 02/09/2023, 01/22/2022, Additional history exists Influenza Vaccine (#1) 2024 , 02/09/2023, 01/22/2022, Additional history exists Breast Cancer Screening 05/23/2026 05/23/19, 05/20/2023, 05/17/2022, Additional history exists DTaP,Tdap,and Td Vaccines (3 - Td or Tdap) 09/10/2027 09/09/2017, 12/13/2009 RSV Immunization Adult Patients (1 - 1-dose 75+ series) 2033 Zoster Vaccines Completed 06/03/2018, 03/30/2018 Pneumococcal Vaccine: 50+ Years Completed 10/05/2023 Hepatitis B Vaccines Completed 04/13/2024, 11/09/2023, 10/05/2023 [...] for breast cancer from Last 3 Months or Most Recently Relevant to Health Maintenance Results * MG Mammo Digital Screening w [...] for biopsy. PQRI CPT II 3342F Code 15925, 77137 PQRI 225 CPT II 7025F TISSUE DENSITY: There are scattered areas of fibroglandular density. (BI-RADS category B) IMPRESSION: Benign. BI-RADS CATEGORY: 2 - BENIGN RECOMMENDATION: Screening bilateral mammogram is recommended in 1 year. Mammo Location: [facility], [address] [place] [address] -------- FINAL REPORT -------- Dictated By: Ramses Guevara Dictated Date: 05/23/2024 10:18 ET Assigned Physician: Ramses Guevara Reviewed and Electronically Signed By: Ramses Guevara Signed Date: 05/23/2024 10:24 ET Workstation ID: [id number] Transcribed By: Self Edit Transcribed Date: 05/23/2024 10:18 ET Narrative 05/23/2024 10:24 AM EST CLINICAL: The patient is a 63 years Female presenting for routine screening mammography. COMPARISON: Most recently 05/20/2023 and most remotely 02/21/2017. TECHNIQUE: Full-field digital mammography of the breasts bilaterally consisting of tomosynthesis in MLO and CC projection is performed in the Poliana 2000-D unit. Computer aided detection utilizing the iCAD [...] MLO and CC projection is performed in thePoliana 2000-D unit. Computer aided detection utilizing the iCADsystem was utilized. FINDINGS: The breasts are again [...] for biopsy. PQRI CPT II 3342F Code 93628, 64915 PQRI 225 CPT II 7025F TISSUE DENSITY: There are scattered areas of fibroglandular density.(BI-RADS category B) IMPRESSION: Benign. BI-RADS CATEGORY: 2 - BENIGN RECOMMENDATION: Screening bilateral mammogram is recommended in 1 year. Mammo Location: [facility], [address] [place] [id number] -------- FINAL REPORT -------- Dictated By: Ramses Guevara Dictated Date: 05/23/2024 10:18 ET Assigned Physician: Ramses Guevara Reviewed and Electronically Signed By: Ramses Guevara Signed Date: 05/23/2024 10:24 ET Workstation ID: [id number] Transcribed By: Self Edit Transcribed Date: 05/23/2024 10:18 ET us Self Referral Sppl IMG BI PROCEDURES Final Resul t from Last 3 Months or Most Recently Relevant to Health Maintenance Insurance [employer] Care Teams Hardboard Press Operator Relationship Specialty Start Date End Date Jackie Woody MD [address] [place] [phone] PCP - General Internal Medicine 11/09/17
--- OUTSIDE RECORDS SUMMARY | 2025-02-20 11:30 | XMS_ITS | Patient Health Record ---
Author Organization [facility] Address [address] [place] [phone] Care Team Providers Care Soft Shoe Dancer Name Role Phone Jackie Wooyd Primary Care Provider Homar Garcia Unavailable [phone] Allergies Allergen (clinical drug ingredient) Drug/Non Drug Allergy documented on EMR Reaction Allergy Type Onset Date Status acetaminophen / oxycodone Percocet nausea Drug Allergy Active Reason For Referral No Information Medications Medication SIG (Take, Route, Fr equency, Duration) Notes Start Date End Date Status Vitamin C 500 MG as directed Orally Active Calcium + D 1200-25 1 tablet Orally once a day Active Immunizations Vaccine Route Administration Date Status Comme nts Influenza Unknown 12/31/2018 Administered Influenza Unknown 01/17/2025 Refused Social History Tobacco Use: Social History Observation Description Date Details (start date - stop date) Former Smoker NA - NA Tobacco Use/Smoking Question Answer Notes Patient is a former smoker When did you stop smoking? 20 years ago How long has it been since you last smoked? > 10 years Alcohol Screen Question Answer Notes Did you have a drink contain ing alcohol in the past year? Yes How often did you have a dri nk containing alcohol in the past year? 2 to 4 times a month (2 points) How many drinks did you have on a typical day when you were drinking in the past year? 1 or 2 drinks (0 point) How often did you have 6 or more drinks on one occasion in the past year? Never (0 point) Points 2 Interpretation Negative Section Notes: Nonsmoker; no sig alcohol Nonsmoker; no sig alcohol Problems Problem Type SNOMED Code ICD Code Onset Dates Problem Status W/U Status Risk Notes Problem Colon cancer screening (184105838) Colon cancer screening (Z12.11) Active confirmed Problem Screening for malignant neoplasm of colon (625294818) Encounter for screening for malignant neoplasm of colon (Z12.11) Active confirmed Problem Preprocedural examination (803525126392977) Preprocedural examination (Z01.818) Active confirmed Problem Pre-procedure evaluation check (636823032) Pre-procedural examination (Z01.818) Active confirmed Problem History of adenomatous polyp of colon (150557556) History of adenomatous polyp of colon (Z86.0101) Active confirmed Vital Signs Temperature 97.7 degrees Fahrenheit 01/17/2025 Blood pressure diastolic 01 mm Hg 01/17/2025 Height 67 in 01/17/2025 Blood pressure systolic 001 mm Hg 01/17/2025 Weight 167.6 lbs 01/17/2025 BMI 26.25 kg/m2 01/17/2025 Procedures Procedure Date Ordered Date Performed Result Body Sit e COLONOSCOPY 01/17/2025 N/A Encounters Encounter Location Date Provider Diagnosis [facility] [address] [place] [address] 01/17/2025 Homar Mays History of adenomato us polyp of colon Z86.0101 ; Preprocedural examination Z01.818 and Colon cancer screening Z12.11 Assessments Encounter Date Diagnosis (ICD Code) Assessment Notes Treatment Notes Treatment Clinical Notes Section Notes 01/17/2025 Preprocedural examination (ICD-10 - Z01.818) Overall, Eliz appears quite well. I did recommend a follow-up colonoscopy for further screening purposes given her history of a tubular adenoma removed over 5 years ago. We did review the rationale for this in regard to colorectal cancer prevention. Full consent has been obtained from her for this, including risks of bleeding and perforation. The procedure will be done with monitored anesthesia care. I did advise her to continue to follow-up for her hemochromatosis with Dr. Anthony and to be sure to maintain a phlebotomy schedule such that her iron and ferritin levels remain in the normal range. Eliz was comfortable with this plan. Thank you again for allowing me to participate in Eliz's care. I shall continue to keep you advised of her progress. 01/17/2025 History of adenomatous polyp of colon (ICD-10 - Z86.0101) Overall, Eliz appears quite well. I did recommend a follow-up colonoscopy for further screening purposes given her history of a tubular adenoma removed over 5 years ago. We did review the rationale for this in regard to colorectal cancer prevention. Full consent has been obtained from her for this, including risks of bleeding and perforation. The procedure will be done with monitored anesthesia care. I did advise her to continue to follow-up for her hemochromatosis with Dr. Anthony and to be sure to maintain a phlebotomy schedule such that her iron and ferritin levels remain in the normal range. Eliz was comfortable with this plan. Thank you again for allowing me to participate in Eliz's care. I shall continue to keep you advised of her progress. 01/17/2025 Colon cancer screening (ICD-10 - Z12.11) Overall, Eliz appears quite well. I did recommend a follow-up colonoscopy for further screening purposes given her history of a tubular adenoma removed over 5 years ago. We did review the rationale for this in regard to colorectal cancer prevention. Full consent has been obtained from her for this, including risks of bleeding and perforation. The procedure will be done with monitored anesthesia care. I did advise her to continue to follow-up for her hemochromatosis with Dr. Anthony and to be sure to maintain a phlebotomy schedule such that her iron and ferritin levels remain in the normal range. Eliz was comfortable with this plan. Thank you again for allowing me to participate in Eliz's care. I shall continue to keep you advised of her progress. Plan Of Treatment Pending Test Test Name Order Date COLONOSCOPY 01/17/2025 Future Test Test Name Order Date COLONOSCOPY 09/11/2019 Next Appt Details Provider Name:Homar Mays , 04/17/2025 10:30:00 AM, [address] [place] [address] , [place], [place], [phone], Insurance Providers Payer Name Payer Address Payer Phone Subscriber Number Group Number Insured Name Patient Relationship to Insured Coverage Start Date Coverage End Date [facility] [address] [place] [phone] [id number] ELIZ CLARKE Self - patient is the insured Medical (General) History Medical History History ICD Code Denies CA,DM,CVA,Lung disease,renal dise ase Negative screening colonoscopy in 07/2009 She described occasional phl ebotomies for slightly elevated iron studies. She denies any known family history of hemochromatosis. She sees Dr. Anthony in [place] for that Screening colonoscopy in August 2019 with a cecal tubular adenoma removed Surgical History Surgery Date(Month/Year)
== END 2025-02-20 09:46 | disposition home or self-care (01) ==
LOC: HO.BBR 09:45
PROVIDERS: PCP Internal Medicine; Visit Provider Internal Medicine
DX: Z13.89 Encounter for screening for other disorder (principal)

== ENCOUNTER 2025-04-17 09:08 | Day surgery (SDC) | payer MEDICARE, SELFPAY ==
--- NOTE | 2025-04-15 12:16 | P.CONAN_ITS ---
Documented by User: Awilda Hill NP 04/15/25 12:18 HPI - Anesthesia Eval Consult details Narrative: 64 yr old female for colonoscopy Hereditary hemochromatosis, a compound heterozygous for 2 mutations - C282Y and H 63D: follows annually with hem[facility]onc at [facility], last visit July 2024; advised on phebotomies twice annually with goal ferritin of 50; [facility] Active Problems Active Problems: All Active Problems (Updated 09/22/20 @ 15:22 by Ginny Otoole PA-C) Osteoarthritis of right knee (Acute) Acute meniscal injury of right knee (Acute) Pain of meniscus of right knee (Acute) Past Medical History Medical History Tubular adenoma Surgical History Surgical History History of tonsillectomy H/O wisdom tooth extraction H/O colonoscopy Social History Social History Patient Tobacco Use Status: Never used Tobacco Use of substances other than those prescribed or required for medical reasons: No Are you DNR?: No Advance Directives: No Advance Directives Information Provided: Yes Patient : No : No Current occupational status: retired Current occupation: right handed/retired Meds Allergies Allergy/AdvReac Type Severity Reaction Status Date / Time oxycodone (From Percocet) Allergy Nausea Verified 11/09/21 14:51 Home Medications ?Medication ?Instructions ?Recorded ?Confirmed ?Last Taken ?Type ascorbic acid (vitamin C) 500 mg 500 mg PO DAILY 04/1504/15/25 Unknown History tablet (Vitamin C) calcium 600 mg (as 1 tab PO DAILY 04/15/2504/01 Unknown History carbonate)-vitamin D3 5 mcg (200 unit) tablet rosuvastatin 5 mg tablet 5 mg PO DAILY 04/17/2504/17 Unknown History turmeric 04/17/25 04/17/25 Unknown H istory Documented by User: Julio C Luciano MD 04/17/25 10:31 [facility] Past Medical History Medical History Tubular adenoma Functional capacity: independent ambulation Family History Family history of problems with anesthesia: No Surgical History Surgical History History of tonsillectomy H/O wisdom tooth extraction H/O colonoscopy History of Problems with Anesthesia: No Social History Social History Patient Tobacco Use Status: Never used Tobacco Use of substances other than those prescribed or required for medical reasons: No Are you DNR?: No Advance Directives: No Advance Directives Information Provided: Yes Patient : No : No Current occupational status: retired Current occupation: right handed/retired Meds Allergies Allergy/AdvReac Type Severity Reaction Status Date / Time oxycodone (From Percocet) Allergy Nausea Verified 11/09/21 14:51 Home Medications ?Medication ?Instructions ?Recorded ?Confirmed ?Last Taken ?Type ascorbic acid (vitamin C) 500 mg 500 mg PO DAILY 04/1504/15/25 Unknown History tablet (Vitamin C) calcium 600 mg (as 1 tab PO DAILY 04/15/2504/01 Unknown History carbonate)-vitamin D3 5 mcg (200 unit) tablet rosuvastatin 5 mg tablet 5 mg PO DAILY 04/17/2504/17 Unknown History turmeric 04/17/25 04/17/25 Unknown H istory Exam Exam Date and Time: 04/17/2025 Airway Mallampati Class: II TM Dist: >3cm Neck ROM: Full Loose/Missing/Broken Teeth: No Heart: normal Lungs: normal Other: normal Assessment and Plan Assessment Anesthesia Assessment: Anesthesia Plan Discussed Final Anesthetic Review Family History of Problems with Anesthesia: No History of Problems with Anesthesia: No NPO: Yes ASA Class: II Final Preanesthetic Review: No Changes in Pt Med Stat, Meds/Allgs Chart Reviewed, Consent Obtained/Reviewed and Anes Risks/Benef Reviewed Patient Risk: Low Procedure Risk: Low Anesthetic Plan Anesthetic Plan: MAC: Disposition: Standard PACU
[2025-04-15 14:23] VITALS: BMI 26.2
[2025-04-17 09:29] VITALS: BMI 26.5
[2025-04-17 09:31] VITALS: BP 116/63; PULSE 62; RESP 16; TEMP 37.3; O2SAT 99
[2025-04-17] MEDS: Lactated Ringers 1,000 ML 100 ML IVCONT (09:49)
[2025-04-17 12:05] VITALS: BP 135/60; PULSE 55; RESP 16; TEMP 36.8; O2SAT 100
--- NOTE | 2025-04-17 12:08 | PM.OP ---
Brief Operative Note Date of Service: 04/17/25 Pre-op diagnosis: Screening Post-op diagnosis: other (Diverticulosis) Procedure: Colonoscopy to the cecum Surgeon: Homar Mays MD Anesthesia: MAC Was an Counter Waitress/Waiter used for this Procedure?: No Estimated blood loss (mL): 0 Pathology: none sent Condition: stable Disposition: PACU
[2025-04-17 12:20] VITALS: BP 126/64; PULSE 50; RESP 18; O2SAT 97
[2025-04-17 12:30] VITALS: BP 129/58; PULSE 51; RESP 19; TEMP 36.4; O2SAT 100
--- NOTE | 2025-04-17 13:55 | OP_ITS ---
DATE OF SERVICE: 04/17/2025 SURGEON: Homar Mays MD INDICATIONS: The patient presents for evaluation of colorectal cancer screening and personal history of colon polyps. Full consent has been obtained from her for this, including risks of bleeding and perforation. PREOPERATIVE DIAGNOSIS: POSTOPERATIVE DIAGNOSIS: PROCEDURE PERFORMED: Colonoscopy to the cecum. ESTIMATED BLOOD LOSS: COMPLICATIONS: ANESTHESIA: Medication used, monitored anesthesia care. ASSISTANTS: SPECIMENS: PREOPERATIVE DIAGNOSES: Colorectal cancer screening and personal history of colon polyps. POSTOPERATIVE DIAGNOSES: Colorectal cancer screening and personal history of colon polyps, diverticulosis, and internal hemorrhoids. DESCRIPTION OF PROCEDURE: The patient was placed in the left lateral decubitus position. The digital rectal exam revealed no abnormalities. The Olympus video pediatric colonoscope was entered into the rectum and advanced easily to the cecum. Once in the cecum, I did identify normal-appearing cecal pouch with appendiceal orifice, and a normal-appearing ileocecal valve. The entire cecum and ileocecal valve appeared normal, including the appendiceal orifice. There was transillumination of light deep in the right lower quadrant. The scope was slowly withdrawn assessing all mucosal surfaces carefully. Preparation was excellent. I did not visualize any sign of polyps, colitis, nor angiodysplasia. There was a mild amount of sigmoid diverticulosis. In the rectum, scope was retroflexed visualizing internal hemorrhoids, but no other pathology. The rectal mucosa appeared normal. The scope was straightened and withdrawn from the patient. She tolerated the procedure well and was returned to the recovery area in stable condition. IMPRESSION: 1. Diverticulosis. 2. Internal hemorrhoids. PLAN: I would recommend a repeat colonoscopy in 5 years for further screening and surveillance. She will otherwise see me as needed.. MD JAMES Mack/MADELIN / [id number] DESHAWN
== END 2025-04-17 12:55 | disposition home or self-care (01) ==
PROVIDERS: PCP Internal Medicine; Visit Provider Internal Medicine
PROC: 0DJD8ZZ Inspection of Lower Intestinal Tract, Via Natural or Artificial Opening Endoscopic (ICD-10-PCS; CPT 45378; principal; 2025-04-17 10:50)
DX: Z12.11 Encounter for screening for malignant neoplasm of colon (principal); Z86.0101 Personal history of adenomatous and serrated colon polyps; K57.30 Diverticulosis of large intestine without perforation or abscess without bleeding; K64.8 Other hemorrhoids
CPT/HCPCS: G0121; J2003; J2704